=== PATIENT | male | born 1995 | race Caucasian/White ===

== ENCOUNTER 2020-02-14 09:56 | Emergency (ER) | payer BC ==
[~2020-02-14] VITALS: Ht 180.3 cm; Wt 79.5 kg
[2020-02-14 10:04] VITALS: BP 142/86
== END 2020-02-14 10:29 | disposition home or self-care (01) ==
LOC: EEVIPCON 09:56 → ER 09:57
DX: K52.9 Noninfective gastroenteritis and colitis, unspecified (principal); Z20.828 Contact with and (suspected) exposure to other viral communicable diseases
CPT/HCPCS: 99281; C9803; 36415; 99283

== ENCOUNTER → 2021-06-10 | Emergency (ER) | payer BC, OTHER ==
[~2021-06-10] VITALS: Ht 180.3 cm; Wt 81.0 kg
[2021-06-10 09:35] VITALS: BP 135/71
== END | disposition home or self-care (01) ==
LOC: ER 09:27 → EEVIPCON 09:27
DX: S90.32XA Contusion of left foot, initial encounter (principal); X50.1XXA Overexertion from prolonged static or awkward postures, initial encounter; Y93.89 Activity, other specified; Y92.89 Other specified places as the place of occurrence of the external cause; Y99.8 Other external cause status
CPT/HCPCS: 73630; 99283

== ENCOUNTER 2023-04-21 09:05 | Emergency (ER) | payer BC, OTHER ==
[~2023-04-21] VITALS: Ht 180.3 cm; Wt 100.0 kg
[2023-04-21 09:33] VITALS: BP 124/67; PULSE 92; O2SAT 98
[2023-04-21 09:46] VITALS: RESP 16
--- NOTE | 2023-04-21 10:52 | NUR ---
P[employer]ED [employer]PERVISOR ASSESSMENT REVIEWED, BY KLAUS RN; APPROVED
[2023-04-21 11:18] VITALS: TEMP 98
== END 2023-04-21 11:18 | disposition home or self-care (01) ==
LOC: ER 09:06
DX: B34.9 Viral infection, unspecified (principal); Z20.822 Contact with and (suspected) exposure to COVID-19
CPT/HCPCS: 36415; 87811; 99283

== ENCOUNTER 2023-08-13 04:28 | Emergency (ER) | payer BC ==
[~2023-08-13] VITALS: Ht 180.3 cm; Wt 91.0 kg
[2023-08-13 04:33] VITALS: BP 132/78; PULSE 66; RESP 16; TEMP 98; O2SAT 97
== END 2023-08-13 06:03 | disposition home or self-care (01) ==
LOC: ER 04:29
DX: M79.672 Pain in left foot (principal); Z79.899 Other long term (current) drug therapy
CPT/HCPCS: 73630; 99283

== ENCOUNTER 2023-12-17 18:03 | Emergency (ER) | payer BC ==
[~2023-12-17] VITALS: Ht 180.3 cm; Wt 88.0 kg
[2023-12-17 18:08] VITALS: TEMP 97.9
[2023-12-17 19:25] VITALS: BP 118/77; PULSE 90; RESP 14; O2SAT 95
== END 2023-12-17 19:26 | disposition home or self-care (01) ==
LOC: ER 18:04
DX: R07.81 Pleurodynia (principal); R53.83 Other fatigue
CPT/HCPCS: 71045; 93005; 99283

== ENCOUNTER 2024-12-13 11:47 | Emergency (ER) | payer BC ==
[~2024-12-13] VITALS: Ht 182.9 cm; Wt 95.2 kg
[2024-12-13 11:52] VITALS: BP 149/70; PULSE 95; RESP 18; O2SAT 97
--- NOTE | 2024-12-13 13:04 | Physician Documentation ---
History of Present Illness ~ Chief Complaint: Extremity Swelling Stated Complaint: SWELLING IN LEGS Time Seen by MD: 12:33 Primary Medical Doctor: None HPI Patient is seen today with complaints of getting sunburned on his legs about three days ago last Wednesday. Patient states he did apply sunscreen but still got burnt. Patient states he has had a little pitting edema in his lower legs originally worse on the right side but now worse on the left side. Patient denies any calf pain. He denies any chest pain or shortness of breath or abdominal pain or nausea, vomiting, diarrhea. Patient has no other concern or complaint at this time. Tetanus witin 5 years: Yes Medication Reconciliation Allergies: Coded Allergies: No Known Allergies (Unverified , 12/13/24) Past Medical History Past Medical History: No Pertinent History Past Surgical History: no surgical history Drug Use: none Lives In: Home Occupation: employed Review of Systems Constitutional: Denies: chills, fever, weakness Eyes: Denies: pain, blurred vision ENT: Denies: ear pain, nose pain, throat pain, mouth pain Respiratory: Denies: cough, shortness of breath Cardiovascular: Denies: chest pain, palpitations Gastrointestinal: Denies: abdominal pain, nausea, vomiting Genitourinary: Denies: burning, dysuria Male Genitalia: Denies: penile discharge, testicular pain Neurological: Denies: headache, dizziness Musculoskeletal: Denies: pain, swelling Integumentary: Denies: rash, lesions Allergic/Immunologic: Denies: hives, itching Hematologic/Lymphatic: Denies: no symptoms reported Psychiatric: Denies: depression, anxiety Physical Exam Vital Signs: Temperature: 98.6, Source: Temporal, Heart Rate: 95, Respiratory Rate: 18, BP: 149/70, Pulse Oximetry: 97, Weight: 95.250 Physical Exam General: Awake and Alert, no acute distress. HEENT: Conjunctiva pink, Sclera clear, Mucus Membranes moist. Neck: Supple without masses and tenderness. Resp: Unlabored. Lungs clear to auscultation bilaterally. Heart: Regular Rate and rhythm, normal S1 and S2 without murmur, rub or gallop. Abdomen: Soft and non tender no organomegaly Extremities: No cyanosis,clubbing. Patient on exam does have 2+ pitting edema of the bilateral lower extremities with erythematous skin consistent with sunbur n without any blistering. Skin: Warm and Dry. Progress Results/Orders Results/Orders Vital Signs 12/13/24 11:52 Temp 98.6 Pulse 95 Resp 18 B/P (MAP) 149/70 Pulse Ox 97 Medical Decision Making Findings Patient is seen today with complaints of getting sunburned on his legs about three days ago last Wednesday. Patient states he did apply sunscreen but still got burnt. Patient states he has had a little pitting edema in his lower legs originally worse on the right side but now worse on the left side. Patient denies any calf pain. He denies any chest pain or shortness of breath or abdominal pain or nausea, vomiting, diarrhea. Patient has no other concern or complaint at this time. Shared decision-making utilized with the patient today. Patient will be given note for work to be off until next week. Patient will rest and elevate legs when needed. Patient will follow up with primary care in 2-5 days if no better as needed sooner. Return to ED with any worsening, concerning or changing sy mptoms. Patient's symptoms will very likely self resolve. Departure Disposition: 01 HOME / SELF CARE / HOMELESS Impression: Primary Impression: Edema of lower extremity Additional Impression: Sunburn of first degree Condition: Stable Discharge Instructions: Sunburn, Adult, Axpl-ej-Romd Additional Instructions: Shared decision-making utilized with the patient today. Patient will be given note for work to be off until next week. Patient will rest and elevate legs when needed. Patient will follow up with primary care in 2-5 days if no better as needed sooner. Return to ED with any worsening, concerning or changing symptoms. Patient's symptoms will very likely self resolve. Referrals: NO PRIMARY CARE PROVIDER (PCP) Signature Scribe Signature: No scribe Attestation: No scribe JOSE SY PAC Dec 13, 2024 13:04
[2024-12-13 13:17] VITALS: TEMP 98.6
== END 2024-12-13 13:18 | disposition home or self-care (01) ==
LOC: ER 11:48
DX: R60.0 Localized edema (principal); L55.0 Sunburn of first degree
CPT/HCPCS: 99281

== ENCOUNTER 2025-04-15 00:12 | Emergency (ER) | payer BC ==
[~2025-04-15] VITALS: Ht 182.9 cm; Wt 93.2 kg
[2025-04-15 00:14] VITALS: BP 124/84; PULSE 88; O2SAT 98
--- NOTE | 2025-04-15 00:22 | Physician Documentation ---
History of Present Illness ~ Chief Complaint: Testicular Pain Stated Complaint: TESTICAL PAIN Time Seen by MD: 00:19 Primary Medical Doctor: None HPI This is a previously healthy 29-year-old male who presents for evaluation of left testicular pain that began 2 hours prior to arrival. No obvious trigger, trauma provocation. He was at work. He states that the pain gradually got worse and it is pretty severe right now. No particular palliating or aggravating factors, this never happened in the past. He also noticed that his left testicle is higher than the right. Denies any other concerns. No concern for tobacco, alcohol or illicit substances use Medication Reconciliation Allergies: Coded Allergies: No Known Allergies (Unverified , 04/15/25) Past Medical History Past Medical History: No Pertinent History Past Surgical History: no surgical history Drug Use: none Lives In: Home Occupation: employed Review of Systems ROS 10 point review of systems was performed and unless noted above in HPI is negative for acute process/complaint. Physical Exam Vital Signs: Temperature: 98.4, Source: Temporal, Heart Rate: 88, Respiratory Rate: 18, BP: 124/84, Pulse Oximetry: 98, Weight: 93.180 Physical Exam Physical examination: GENERAL: Awake, alert, oriented, GCS 15, no apparent distress, non-toxic appearing, answers questions, follows commands appropriately. HEENT: Atraumatic, normocephalic, pupils equal, extraocular muscles intact Active gross movements, sclerae anicteric, mucus membranes moist, no stridor. NECK: Midline, no JVD CARDIOVASCULAR: Good skin perfusion without evidence of pallor, mottling. PULMONARY: Nonlabored, symmetric chest rise, no audible wheezing, no accessory muscle use, no respiratory distress, speaking in full sentences. GASTROINTESTINAL: Not distended. NEUROLOGIC: Lucid with normal mental status. Normal facial symmetry. Moves all extremities symmetrically and with purpose. No truncal ataxia. Speech is fluid without evidence of dysarthria or aphasia, no focal deficits appreciated. EXTREMITIES: Acute deformities Skin: warm, dry PSYCHIATRIC: Normal affect, normal insight, normal concentration. 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 Normal male genitalia. High-riding left testicle, tender to palpation, negative cremasteric reflex.] Progress Results/Orders Results/Orders Orders - SCHULACK,JENNY M DO Us Testicular Ltd (04/15/25 ) Us Testic/W/Duplex (04/15/25 ) Ct Abdomen Pelvis (04/15/25 ) Completed Orders - JENNY ESCOBAR DO Urinalysis, Cult If Indicated (04/15/25 00:20) Us Testic/W/Duplex (04/15/25 ) Ct Abdomen Pelvis (04/15/25 ) Ketorolac Trometh 15mg/Ml Vial (Toradol (04/15/25 01:35) Medications Received in ER Medications (Trade) Dose Ordered Sig/Jay Route PRN Reason Start Time Stop Time Status Last Admin Dose Admin (Toradol injection) 15 mg ONCE ONCE IM 04/15/25 01:35 04/15/25 01:36 DC 04/15/25 01:52 15 MG Vital Signs 04/15/25 04/15/25 04/15/25 00:14 01:34 01:52 Temp 98.4 Pulse 88 Resp 18 18 18 B/P (MAP) 124/84 Pulse Ox 98 Laboratory Tests Test 04/15/25 00:25 Urine Specimen Description Cln catch midstream Urine Color Yellow Urine Clarity Clear Urine pH 6.0 Urine Specific [place] >=1.030 Urine Protein Negative Urine Glucose (UA) Negative Urine Ketones Negative Urine Occult Blood Negative Urine Nitrite Negative Urine Bilirubin Negative Urine Urobilinogen 0.2 Urine Leukocyte Esterase Negative Urine Culture Indicated Not ind Volume Urine Centrifuged 10 ml Urine Comment Medical Decision Making Findings Facility Status: ED Holds, [facility] process The plan was discussed with the patient, who demonstrates clear understanding of the plan and is in agreement with the plan unless otherwise noted in the chart. All questions have been answered, all concerns were addressed unless otherwise documented. I was available throughout their ED stay for frequent reassessment and questions. Differential Diagnoses (considered and possible or likely): [Orchitis, epididymitis, testicular torsion, less likely prostatitis, clinically not consistent with a hernia] ??Differential Diagnoses (considered and unlikely, not requiring evaluation currently): [See above] MDM Data Please see [facility] for the following: Independent Historians and external Records Review. Historian: [Patient] Independent Historians: ?[None] Medication Management: [Reviewed medication list] Social History and determinants: [Reviewed] Please see the body of the note for the following: Any independent interpretations of ECG, imaging studies. All vitals signs/haemodynamics, ordered tests were independently reviewed and interpreted by myself. Nursing triage complaint and vitals reviewed, additional nursing notes were reviewed as available and I agree unless otherwise noted or documented in con tradiction in the chart Vital Signs: Independently reviewed Labs: Independently interpreted Imaging: Independently interpreted Old Medical Records: Independently reviewed, see HPI for relevant summary and information Pulse Oximetry: [100%] interpreted as [normal on room air] by me Additionally notably showing: [Hemodynamics reviewed. The patient was not febrile, not tachycardic, no evidence of hypotension respiratory distress. UA is nondiagnostic for UTI. No blood. Testicular ultrasound shows left-sided hydrocele, trace fluid. No evidence of torsion, epididymitis or orchitis. CT of the abdomen and pelvis was obtained showing no acute intra-abdominal or pelvic findings.] Tests considered but not ordered include: [Hematologic workup has been considera debo but does not appear to be necessary given his presenting complaint] Social Determinants of Health Impact: Patient was evaluated in [facility] [place] to healthcare due to below par ratio of patient to medical providers. [] Comorbid Conditions Impacting Present Evaluation and Care/Treatment: [None] Management Discussions with other Healthcare Providers: [None] Treatment and Disposition Medication Management (Given or considered): [Pain management]. See EMR for details Consideration for Hospitalization/Escalation/Deescalation of Care: Admission for observation has been considered, [however the patient is able to tolerate p.o., their symptoms are controlled, they are able to rely on oral medications, and their chief complaint/diagnosis can be managed on outpatient basis.] ?ED Course:?[No clinical deterioration, no obvious explanation for his symptoms.] ?Shared decision making:?[Patient is hemodynamically stable for discharge home with follow with their primary care provider. [ ] Specific and cautious return precautions provided and discussed with full understanding. Any incidental findings were also discussed and follow up recommendations given. [] All questions answered. Patient/family were able to verbalize back return precautions. Patient/family agree to plan. Copies of imaging and laboratory studies were provided.] Code status:?FULL Please see the full Electronic Medical Record for full details of nursing documentation, medications list, other records of complete past medical history and conditions, vital signs, laboratory studies, and any radiologic study inter pretations by radiologists. Portions of this note were completed using [employer] dictation software and as a result there may exist minor errors in spelling. I have reviewed elements of past family and social history and agree as included in note. Departure Disposition: HOME / SELF CARE / HOMELESS Impression: Primary Impression: Left testicular pain Additional Impressions: Left groin pain Left hydrocele Condition: Improved Discharge Instructions: Hydrocele, Adult, Testicular Self-Exam Referrals: NO PRIMARY CARE PROVIDER (PCP) Education Educated: Patient Educated regarding: diagnosis, treatment, prognosis, need for follow up Signature Scribe Signature: No scribe Attestation: Date: Apr 15, 2025 Time: 00:22 This note accurately reflects clinical decisions, work performed by myself, DO SHAWN Haddad NICHOLAS M DO Apr 15, 2025 00:22
[2025-04-15 01:14] LABS: LEUKOCYTE ESTERASE ,URINE NEGATIVE (Neg); NITRITES, URINE NEGATIVE (Neg); OCCULT BLOOD,URINE NEGATIVE (Neg)
[2025-04-15 01:19] LABS: UA COLLECTION TYPE CLN CATCH MIDSTREAM
[2025-04-15 01:52] VITALS: RESP 18
[2025-04-15] MEDS: ketorolac trometh 15mg/ml vial 15 MG/ML ML IM ONE (01:52)
--- NOTE | 2025-04-15 02:20 | RADIOLOGY REPORT ---
ULTRASOUND OF SCROTUM AND CONTENTS. INDICATION: Left testicular pain COMPARISON: None TECHNIQUE: Multiple real-time grayscale sonographic and color and duplex Doppler images of the scrotum and its contents were obtained. FINDINGS: The right testicle measures 4.8 x 3.0 x 2.3 cm. The left testicle measures 4.9 x 3.2 x 2.0 cm. Both testicles demonstrate homogeneous echotexture without evidence of focal lesions. Left hydrocele and trace free fluid. The right epididymis measures 1.0 cm. The left epididymis measures 0.8 cm. Subsequent color and duplex Doppler interrogation of the testes demonstrated symmetric normal vascular flow to both testicles. focal areas of hyperemia were seen. IMPRESSION: 1. No evidence of torsion, epididymitis, and/or orchitis. 2. Left hydrocele and trace free fluid.
--- NOTE | 2025-04-15 02:23 | RADIOLOGY REPORT ---
Exam: CT CT ABDOMEN PELVIS History: Left groin/testicle pain, Kidney stone Comparison Study: None Technique: Multidetector spiral CT of the abdomen was performed from lung bases to pubic symphysis. Imaging was performed without IV contrast. Axial, coronal and sagittal multiplanar reformats were obtained from the axial data set by the technologist. Radiation Dose : 1. Abdomen/Pelvis: CTDIvol 30.8 mGy, DLP 1293.5 mGy*cm. Findings: Evaluation of solid organs is limited due to lack of intravenous contrast use. Lung Bases: No acute or significant lung base finding. Normal heart size. No pleural or pericardial effusion. Liver: The liver is normal in size. No focal lesions. Gallbladder and Biliary Tree: Unremarkable Spleen: Unremarkable Pancreas: The pancreas is grossly normal in appearance. Adrenal Glands: Unremarkable Kidneys: Kidneys are grossly normal without calculi or hydronephrosis. Bladder: Grossly unremarkable for degree of distention. Bowel: The stomach is grossly normal in appearance. Retained colorectal stool. Small bowel and colon are otherwise normal in caliber and distribution. The appendix is normal. Ascites: Absent Lymphadenopathy: No mesenteric, retroperitoneal or periportal lymphadenopathy. Abdominal Wall and Mesentery: Unremarkable. Vasculature: The visualized abdominal aorta is normal in size and caliber. Evaluation of abdominal and pelvic vessels is limited due to lack of intravenous contrast. Pelvic Organs: Unremarkable Musculoskeletal: No aggressive focal bony lesions, acute fractures or dislocation. IMPRESSION: 1. No acute abdominal or pelvic findings. Radiation optimization: All CT scans at this facility use at least one of these dose optimization techniques: automated exposure control mA and/or kV adjustment per patient size (includes targeted exams where dose is matched to clinical indication) or iterative reconstruction.
[2025-04-15 02:47] VITALS: TEMP 98.4
== END 2025-04-15 02:48 | disposition home or self-care (01) ==
LOC: ER 00:12
DX: N50.812 Left testicular pain (principal); N43.3 Hydrocele, unspecified
CPT/HCPCS: 74176; 76870; 81003; 93976; 96372; 99285; J1885